=== PATIENT | male | born 1990 | race Caucasian/White ===

== ENCOUNTER 2022-05-04 20:57 | Emergency (ER) | payer MEDICAID ==
[2022-05-04 22:06] LABS: BASOPHILS % (AUTO) 0.3 % (0-1); EOSINOPHILS # (AUTO) 0.1 X10'3 (0-0.9); EOSINOPHILS % (AUTO) 1.7 % (0-6); HEMATOCRIT 41.7 % (42.0-52.0); HEMOGLOBIN 14.3 g/dl (14.0-17.9); LYMPHOCYTES # (AUTO) 2.5 X10'3 (1.1-4.8); LYMPHOCYTES % (AUTO) 50.7 % (21-51); MEAN CORPUSCULAR HEMOGLOBIN 31.9 PG (27.0-31.0); MEAN CORPUSCULAR HGB CONC 34.2 g/dL (33.0-36.5); MEAN CORPUSCULAR VOLUME 93.3 FL (78-98); MEAN PLATELET VOLUME 7.1 FL (7.4-10.4); MONOCYTES # (AUTO) 0.5 X10'3 (0-0.9); MONOCYTES % (AUTO) 9.2 % (2-12); NEUTROPHILS # (AUTO) 1.9 X10'3 (1.8-7.7); NEUTROPHILS % (AUTO) 38.1 % (42-75); PLATELET COUNT 118 X10'3 (140-440); RED BLOOD COUNT 4.47 X10'6 (4.70-6.10); RED CELL DISTRIBUTION WIDTH 12.8 % (11.5-14.5); WHITE BLOOD COUNT 4.9 X10'3 (4.5-11.0)
[2022-05-04 22:17] LABS: ALANINE AMINOTRANSFERASE 37 U/L (12-78); ALBUMIN 3.8 G/DL (3.4-5.0); ALBUMIN/GLOBULIN RATIO 1.1 (1.1-1.5); ALKALINE PHOSPHATASE 80 IU/L (46-116); ANION GAP 4 (8-16); ASPARTATE AMINO TRANSFERASE 30 U/L (10-37); BILIRUBIN,TOTAL 0.3 MG/DL (0.1-1.0); BLOOD UREA NITROGEN 19 MG/DL (7-18); BUN/CREATININE RATIO 20.9 (5.4-32.0); CHLORIDE 103 MMOL/L (99-107); CREATININE 0.91 MG/DL (0.60-1.10); ETHANOL < 0.010 GM/DL (0.0-0.010); GLUCOSE 80 MG/DL (70-104); POTASSIUM 4.4 MMOL/L (3.5-5.1); SODIUM 138 MMOL/L (135-145); TOTAL CARBON DIOXIDE 31.1 MMOL/L (24-32); TOTAL PROTEIN 7.2 G/DL (6.4-8.2); eGFR > 90 ML/MIN
--- NOTE | 2022-05-04 23:29 | NUR ---
PT TRANSFERED TO ER ROOM 8 ON A GURNEY. PT RESTING IN ROOM. ENVIRONMENT CHECK COMPLETED.
--- NOTE | 2022-05-05 01:28 | NUR ---
PT CONTINUES TO SLEEP IN ROOM. RESPIRATIONS ARE EQUAL AND UNLABORED. NO DISTRESS OBSERVED AT THIS TIME.
[2022-05-05 04:48] LABS: URINE AMPHETAMINE SCREEN NEGATIVE (Neg); URINE BARBITUATE SCREEN NEGATIVE (Neg); URINE BENZODIAZEPINES SCREEN NEGATIVE (Neg); URINE CANNABINOID SCREEN NEGATIVE (Neg); URINE COCAINE SCREEN NEGATIVE (Neg); URINE METHADONE SCREEN NEGATIVE (Neg); URINE OPIATE SCREEN NEGATIVE (Neg); URINE PHENCYCLIDINE SCREEN NEGATIVE (Neg)
--- NOTE | 2022-05-05 05:58 | NUR ---
PT AWAKE AND RESTING ON GURNEY. PT APPEARS TO BE IN NO APPARENT DISTRESS. RESPIRATIONS EQUAL AND UNLABORED.
[2022-05-05 06:02] VITALS: BP 103/78
--- NOTE | 2022-05-05 07:30 | NUR ---
Pt ambulated from main ED to OF bed #25. Pt appears calm/cooperative. Pt now sitting on bed cross-legged.
[2022-05-05 07:42] LABS: CLARITY,URINE CLEAR (Clear); COLOR,URINE YELLOW (Yellow); GLUCOSE, URINE NEGATIVE (Neg); KETONES,URINE NEGATIVE (Neg); LEUKOCYTE ESTERASE ,URINE NEGATIVE (Neg); NITRITES, URINE NEGATIVE (Neg); OCCULT BLOOD,URINE NEGATIVE (Neg); PROTEIN,URINE NEGATIVE (Neg); UROBILINOGEN,URINE 0.2 E.U/dL (0.2-1.0)
[2022-05-05 07:49] LABS: UA COLLECTION TYPE URINAL
--- NOTE | 2022-05-05 08:00 | NUR ---
Faxed Packet to [facility]
--- NOTE | 2022-05-05 09:38 | NUR ---
custodial staff ([facility]) is at bedside. filed a missing persons reports as pt ran away from home last night. Received updated med list from Rah (sas administrator) [phone]. Per report from Rah pt has assulative and self-harm behaviors. Pt scratches and hits himself, also bit the tip of his pinky off. Pt has a difficult time balancing reality and make believe and requires redirection. Pt has had no behaviors as of this writing.
--- NOTE | 2022-05-05 10:18 | NUR ---
[facility] clinician at bedside.
--- NOTE | 2022-05-05 12:31 | NUR ---
DISCHARGE NOTE Patient was discharged from unit at 1117. Pt was picked up and transported back to his alf by Joseph. Pt was A&Ox4. Pt states "I was sorry." "I didn't want anyone to get hurt so I ran away."
== END 2022-05-05 11:17 | disposition home or self-care (01) ==
LOC: ER 20:57
DX: S01.21XA Laceration without foreign body of nose, initial encounter (principal); Z20.822 Contact with and (suspected) exposure to COVID-19; R45.851 Suicidal ideations; X83.8XXA Intentional self-harm by other specified means, initial encounter; Y93.89 Activity, other specified; Y92.89 Other specified places as the place of occurrence of the external cause; Y99.8 Other external cause status
CPT/HCPCS: 36415; 80053; 80305; 80320; 81003; 84443; 85025; 87811; 99285

== ENCOUNTER 2023-11-08 17:07 | Inpatient (IN) | payer MEDICAID ==
[~2023-11-08] VITALS: Ht 175.3 cm; Wt 101.0 kg
[2023-11-08 18:05] LABS: BILIRUBIN,URINE NEGATIVE (Neg); CLARITY,URINE CLOUDY (Clear); COLOR,URINE YELLOW (Yellow); GLUCOSE, URINE NEGATIVE (Neg); KETONES,URINE NEGATIVE (Neg); LEUKOCYTE ESTERASE ,URINE MODERATE (Neg); NITRITES, URINE POSITIVE (Neg); OCCULT BLOOD,URINE LARGE (Neg); PROTEIN,URINE 100 mg/dl (Neg); UROBILINOGEN,URINE 0.2 E.U/dL (0.2-1.0)
[2023-11-08 18:10] LABS: UA COLLECTION TYPE VOIDED
[2023-11-08 18:15] LABS: BACTERIA,URINE 1+ /HPF (Neg); RBC,URINE TNTC /HPF (0-2); WBC,URINE 30-50 /HPF (0-4)
[2023-11-08 18:16] LABS: SQUAMOUS EPITHELIAL CELL,UR FEW /LPF (FEW); TRANSITIONAL EPI CELLS,URINE MODERATE /HPF; WBC CLUMPS,URINE MODERATE /HPF (NEGATIVE)
[2023-11-08 20:04] LABS: BASOPHILS % (AUTO) 0.3 % (0-1); EOSINOPHILS # (AUTO) 0.1 X10'3 (0-0.9); EOSINOPHILS % (AUTO) 0.6 % (0-6); HEMATOCRIT 46.3 % (42.0-52.0); HEMOGLOBIN 16.1 g/dl (14.0-17.9); LYMPHOCYTES % (AUTO) 11.6 % (21-51); MEAN CORPUSCULAR HEMOGLOBIN 31.1 PG (27.0-31.0); MEAN CORPUSCULAR HGB CONC 34.7 g/dL (33.0-36.5); MEAN CORPUSCULAR VOLUME 89.6 FL (78-98); MEAN PLATELET VOLUME 7.6 FL (7.4-10.4); MONOCYTES # (AUTO) 0.7 X10'3 (0-0.9); MONOCYTES % (AUTO) 7.6 % (2-12); NEUTROPHILS # (AUTO) 7.2 X10'3 (1.8-7.7); NEUTROPHILS % (AUTO) 79.9 % (42-75); PLATELET COUNT 135 X10'3 (140-440); RED BLOOD COUNT 5.17 X10'6 (4.70-6.10)
[2023-11-08 20:10] LABS: ALBUMIN 4.2 G/DL (3.4-5.0); ANION GAP 9 (8-16); BLOOD UREA NITROGEN 16 MG/DL (7-18); BUN/CREATININE RATIO 17.8 (10.0-20.0); CALCIUM 9.8 MG/DL (8.5-10.1); CHLORIDE 99 MMOL/L (99-107); GLUCOSE 94 MG/DL (70-104); MAGNESIUM 1.7 MG/DL (1.5-2.4); POTASSIUM 4.2 MMOL/L (3.5-5.1); SODIUM 137 MMOL/L (135-145); TOTAL CARBON DIOXIDE 29.1 MMOL/L (24-32); eCRCL 118 ML/MIN; eGFR > 90 ML/MIN
[2023-11-08] MEDS: normal saline 1000ML IV soln IV ONE (20:15)
[2023-11-08] MEDS: CefTRIAXone 2gm/D5W 50ml BAG 50 ML IV ONE (20:15)
[2023-11-08] MEDS: acetaminophen 1,000mg/100ml IV 100 ML IV SCH (21:12)
[2023-11-08] MEDS: normal saline 1000ml 1,000 ML IV ONE (22:42)
[2023-11-08] MEDS: normal saline 1000ML IV soln IVB ONE ×2 (22:45→23:50)
[2023-11-09] MEDS ORDERED: mag hydrox/Alum hydrox/simeth 30ml oral suspension PO PRN (01:15)
[2023-11-09] MEDS ORDERED: magnesium Cl slow-release 64mg tablet PO PRN (01:15)
[2023-11-09] MEDS ORDERED: magnesium sulf-water 4G/100mL 100 ML IV PRN (01:15)
[2023-11-09] MEDS ORDERED: magnesium sulf-water 2g/50mL 50 ML IV PRN (01:15)
[2023-11-09] MEDS ORDERED: magnesium hydroxide 30ml (MOM) UD suspension PO PRN (01:15)
[2023-11-09] MEDS ORDERED: ondansetron/PF 4mg/2ml inj IV PRN (01:15)
[2023-11-09] MEDS ORDERED: potassium Cl 20 mEq SR tablet PO PRN ×2 (01:15)
[2023-11-09] MEDS ORDERED: potassium Cl 40MEQ/1/2NS 520ml 520 ML IV PRN (01:15)
[2023-11-09 03:02] LABS: HEMOGLOBIN A1C 5.1 % (4.5-6.2); POTASSIUM 4.5 MMOL/L (3.5-5.1)
[2023-11-09 03:04] LABS: APTT 27 SECONDS (22-32); PROTHROMBIN TIME 10.9 SECONDS (9.0-12.0)
[2023-11-09] MEDS ORDERED: QUET-28 PO (03:20)
[2023-11-09] MEDS ORDERED: HALO0.5T PO (03:20)
[2023-11-09] MEDS ORDERED: CLON0.5T5 PO (03:20)
[2023-11-09] MEDS ORDERED: CLON-570 PO (03:20)
[2023-11-09] MEDS ORDERED: BENZ2TAB74 PO (03:20)
[2023-11-09] MEDS ORDERED: CLON0.1T2 PO (03:20)
[2023-11-09] MEDS ORDERED: DIVA500T9 PO (03:20)
[2023-11-09] MEDS ORDERED: ESCI20TA39 PO (03:20)
[2023-11-09] MEDS ORDERED: DIVA250T8 PO (03:20)
[2023-11-09] MEDS ORDERED: QUET100T34 PO (03:20)
[2023-11-09] MEDS ORDERED: DIVA-74 PO (03:21)
[2023-11-09 04:33] VITALS: BP 131/69; PULSE 113; RESP 15; TEMP 98.2; O2SAT 97
[2023-11-09] MEDS ORDERED: clonazePAM 0.5mg tablet PO PRN (05:45)
[2023-11-09 06:00] VITALS: BP 95/55; PULSE 100; RESP 16; TEMP 97.3; O2SAT 99
[2023-11-09] MEDS ORDERED: MELA10TA2 PO (06:01)
[2023-11-09] MEDS ORDERED: LORA10TA7 PO (06:01)
[2023-11-09] MEDS ORDERED: OMEG100037 PO (06:01)
[2023-11-09 08:00] VITALS: RESP 16; O2SAT 98
[2023-11-09] MEDS: haloperidol 1mg tablet PO SCH (08:00)
[2023-11-09] MEDS: K and/or MAG REPLACEMENT MC SCH (08:00)
[2023-11-09] MEDS: ESCITALOPRAM 10 mg tablet 10 MG TABLET PO SCH (08:39)
[2023-11-09] MEDS: clonazePAM 1mg tablet PO SCH (08:39)
[2023-11-09] MEDS: docusate sod 100mg capsule PO SCH (08:40)
[2023-11-09 10:00] VITALS: BP 120/75; PULSE 87; RESP 17; TEMP 97.6; O2SAT 98
[2023-11-09 18:00] VITALS: BP 119/72; PULSE 83; RESP 16; TEMP 95.7; O2SAT 95
[2023-11-09] MEDS: CefTRIAXone/D5W-Rocephin 1gm 50 ML IV SCH (19:43)
[2023-11-09] MEDS ORDERED: quetiapine 100mg tablet PO SCH (20:00)
[2023-11-09] MEDS ORDERED: divalproex sod 250mg ER (24-hour) tablet PO SCH (20:00)
[2023-11-09] MEDS: acetaminophen 325mg tablet PO PRN (20:14)
[2023-11-09] MEDS: benztropine 1mg tablet PO SCH (20:18)
[2023-11-09] MEDS: Melatonin 3mg tablet PO SCH (20:18)
[2023-11-09] MEDS: cloNIDine 0.1 mg tablet PO SCH (20:18)
[2023-11-09] MEDS: quetiapine 100mg tablet PO SCH (20:18)
[2023-11-09] MEDS: divalproex sod 250mg ER (24-hour) tablet PO SCH (20:19)
[2023-11-09 22:00] VITALS: BP 107/69; PULSE 104; RESP 18; TEMP 98.2; O2SAT 96
[2023-11-10 05:23] LABS: BASOPHILS % (AUTO) 0.1 % (0-1); EOSINOPHILS # (AUTO) 0.1 X10'3 (0-0.9); HEMATOCRIT 39.3 % (42.0-52.0); HEMOGLOBIN 13.5 g/dl (14.0-17.9); LYMPHOCYTES # (AUTO) 1.6 X10'3 (1.1-4.8); LYMPHOCYTES % (AUTO) 16.3 % (21-51); MEAN CORPUSCULAR HEMOGLOBIN 31.2 PG (27.0-31.0); MEAN CORPUSCULAR HGB CONC 34.4 g/dL (33.0-36.5); MEAN CORPUSCULAR VOLUME 90.8 FL (78-98); MEAN PLATELET VOLUME 8.2 FL (7.4-10.4); MONOCYTES # (AUTO) 1.3 X10'3 (0-0.9); MONOCYTES % (AUTO) 13.2 % (2-12); NEUTROPHILS # (AUTO) 6.7 X10'3 (1.8-7.7); NEUTROPHILS % (AUTO) 69.4 % (42-75); PLATELET COUNT 129 X10'3 (140-440); RED BLOOD COUNT 4.33 X10'6 (4.70-6.10); RED CELL DISTRIBUTION WIDTH 12.9 % (11.5-14.5); WHITE BLOOD COUNT 9.7 X10'3 (4.5-11.0)
[2023-11-10 05:41] LABS: ALANINE AMINOTRANSFERASE 28 U/L (12-78); ALBUMIN 3.3 G/DL (3.4-5.0); ALBUMIN/GLOBULIN RATIO 0.9 (1.1-1.5); ALKALINE PHOSPHATASE 54 IU/L (46-116); ANION GAP 7 (8-16); ASPARTATE AMINO TRANSFERASE 14 U/L (10-37); BILIRUBIN,TOTAL 0.5 MG/DL (0.1-1.0); BLOOD UREA NITROGEN 7 MG/DL (7-18); BUN/CREATININE RATIO 8.9 (10.0-20.0); CALCIUM 9.1 MG/DL (8.5-10.1); CHLORIDE 102 MMOL/L (99-107); CHOL/HDL RATIO 2.7 (0.00-4.99); CHOLESTEROL 116 MG/DL (0-200); CREATININE 0.79 MG/DL (0.60-1.10); GLUCOSE 107 MG/DL (70-104); HDL CHOLESTEROL 43 MG/DL (35-60); LDL CHOLESTEROL 64 MG/DL (50-100); MAGNESIUM 1.7 MG/DL (1.5-2.4); SODIUM 136 MMOL/L (135-145); TOTAL PROTEIN 6.9 G/DL (6.4-8.2); TRIGLYCERIDES 56 MG/DL (20-135); eCRCL 134 ML/MIN; eGFR > 90 ML/MIN
[2023-11-10 08:00] VITALS: RESP 16; O2SAT 99
[2023-11-10] MEDS: QUETIAPINE 50 MG TAB.SR.24H PO SCH (09:19)
[2023-11-10] MEDS: divalproex sod 250mg ER (24-hour) tablet PO SCH (15:28)
[2023-11-10] MEDS ORDERED: AMOX-419 PO (18:40)
== END 2023-11-10 19:10 | disposition home or self-care (01) | DRG 463 ==
LOC: ER 17:08 → ED HOLD 11-09 01:21 → ORTHO 4S 11-09 03:40
PROVIDERS: ADMIT Internal Medicine Pulmonary Disease; ATTEND Internal Medicine
DX: N30.01 Acute cystitis with hematuria (principal); R65.10 Systemic inflammatory response syndrome (SIRS) of non-infectious origin without acute organ dysfunction; F84.0 Autistic disorder
CPT/HCPCS: 36415; 71045; 76700; 80048; 80053; 80061; 81001; 83036; 83605; 83735; 84100; 84132; 84145; 85025; 85610; 85730; 87040; 87077; 87081; 87088; 87186; 93005; 93975; 96361; 96365; 96375; 99285; G0378; J0131; J0696; J7030

== ENCOUNTER 2024-01-12 08:42 | Emergency (ER) | payer MEDICAID ==
[~2024-01-12] VITALS: Ht 175.3 cm; Wt 98.8 kg
[~2024-01-12 08:42] MED LIST: BENZ2TAB74 PO; CLON-570 PO; CLON0.1T2 PO; CLON0.5T5 PO; DIVA250T8 PO; DIVA500T9 PO; ESCI20TA39 PO; HALO0.5T PO; MELA10TA2 PO; OMEG100037 PO; QUET-28 PO; QUET100T34 PO
[2024-01-12 10:15] LABS: ALANINE AMINOTRANSFERASE 21 U/L (12-78); ALBUMIN 3.5 G/DL (3.4-5.0); ALKALINE PHOSPHATASE 64 IU/L (46-116); ANION GAP 7 (8-16); ASPARTATE AMINO TRANSFERASE 19 U/L (10-37); BILIRUBIN,TOTAL 0.4 MG/DL (0.1-1.0); BLOOD UREA NITROGEN 8 MG/DL (7-18); BUN/CREATININE RATIO 12.7 (10.0-20.0); CALCIUM 9.2 MG/DL (8.5-10.1); CHLORIDE 105 MMOL/L (99-107); CREATININE 0.63 MG/DL (0.60-1.10); GLUCOSE 89 MG/DL (70-104); SODIUM 138 MMOL/L (135-145); TOTAL CARBON DIOXIDE 25.6 MMOL/L (24-32); TOTAL PROTEIN 6.9 G/DL (6.4-8.2); eCRCL 168 ML/MIN; eGFR > 90 ML/MIN
[2024-01-12 10:18] LABS: POTASSIUM 4.4 MMOL/L (3.5-5.1)
[2024-01-12 10:43] LABS: OCCULT BLOOD STOOL POSITIVE (Neg)
[2024-01-12 10:57] LABS: BASOPHILS % (AUTO) 0.4 % (0-1); EOSINOPHILS # (AUTO) 0.2 X10'3 (0-0.9); EOSINOPHILS % (AUTO) 3.4 % (0-6); HEMOGLOBIN 14.5 g/dl (14.0-17.9); LYMPHOCYTES # (AUTO) 2.2 X10'3 (1.1-4.8); LYMPHOCYTES % (AUTO) 42.6 % (21-51); MEAN CORPUSCULAR HEMOGLOBIN 30.2 PG (27.0-31.0); MEAN CORPUSCULAR HGB CONC 33.6 g/dL (33.0-36.5); MEAN CORPUSCULAR VOLUME 89.9 FL (78-98); MEAN PLATELET VOLUME 8.2 FL (7.4-10.4); MONOCYTES # (AUTO) 0.5 X10'3 (0-0.9); MONOCYTES % (AUTO) 8.9 % (2-12); NEUTROPHILS # (AUTO) 2.3 X10'3 (1.8-7.7); NEUTROPHILS % (AUTO) 44.7 % (42-75); PLATELET COUNT 178 X10'3 (140-440); RED BLOOD COUNT 4.78 X10'6 (4.70-6.10); RED CELL DISTRIBUTION WIDTH 12.8 % (11.5-14.5); WHITE BLOOD COUNT 5.2 X10'3 (4.5-11.0)
[2024-01-12] MEDS ORDERED: DOCU-148 PO (11:04)
[2024-01-12] MEDS ORDERED: POLY119P2 PO (11:04)
[2024-01-12 11:24] LABS: BILIRUBIN,URINE NEGATIVE (Neg); CLARITY,URINE CLEAR (Clear); COLOR,URINE STRAW (Yellow); GLUCOSE, URINE NEGATIVE (Neg); KETONES,URINE NEGATIVE (Neg); LEUKOCYTE ESTERASE ,URINE NEGATIVE (Neg); NITRITES, URINE NEGATIVE (Neg); OCCULT BLOOD,URINE NEGATIVE (Neg); PROTEIN,URINE NEGATIVE (Neg); UROBILINOGEN,URINE 0.2 E.U/dL (0.2-1.0)
[2024-01-12 11:26] VITALS: BP 112/73; PULSE 78; RESP 16; TEMP 98.3; O2SAT 97
[2024-01-12 11:27] LABS: UA COLLECTION TYPE NON-SPECIFIED
== END 2024-01-12 11:28 | disposition home or self-care (01) ==
LOC: ER 08:42
DX: K60.2 Anal fissure, unspecified (principal); Z79.899 Other long term (current) drug therapy
CPT/HCPCS: 36415; 80053; 81003; 82272; 85025; 99283

== ENCOUNTER 2024-01-14 10:24 | Emergency (ER) | payer MEDICAID ==
[~2024-01-14] VITALS: Ht 172.7 cm; Wt 95.5 kg
[~2024-01-14 10:24] MED LIST changes: +DOCU-148 PO; +POLY119P2 PO
[2024-01-14] MEDS: TETanus/Pertussis (Acell)/Diphther VAC/PF (Tdap-Adult) 0.5ml syringe IMVAC ONE (10:59)
[2024-01-14] MEDS: LIDOcaine 1% W/epiNEPHrine 1:100,000 20ml vial IJ ONE (10:59)
[2024-01-14 11:50] VITALS: BP 120/75; PULSE 90; RESP 17; TEMP 98.6; O2SAT 96
== END 2024-01-14 11:52 | disposition home or self-care (01) ==
LOC: ER 10:25
DX: S01.01XA Laceration without foreign body of scalp, initial encounter (principal); Z79.899 Other long term (current) drug therapy; W22.8XXA Striking against or struck by other objects, initial encounter; Y93.89 Activity, other specified; Y92.89 Other specified places as the place of occurrence of the external cause; Y99.8 Other external cause status
CPT/HCPCS: 12001; 90471; 90715; 99283; J7030; A6258; A6446; A6449